=== PATIENT | male | born 1975 | race Caucasian/White ===

== ENCOUNTER 2025-06-17 13:13 | Emergency (ER) | payer OTHER, SELFPAY ==
--- OUTSIDE RECORDS SUMMARY | 2025-06-17 13:15 | XMS_ITS | Clinical Summary ---
Author Organization [facility] Address [address] [place] [address] Care Team Providers Care Rn Ed Name Role Phone Unavailable Primary Care Provider Unavailabl e Allergies Active Allergy Reactions Criticality Noted Date Comments Penicillins Anaphylaxis,Unknown High 09/23/2017 Medications promethazine-dex tromethorphan (PHENERGAN-DM) 6.25-15 mg/5 mL syrup Take 5 mL by mouth every 6 hours as needed for Cough. 120 mL 1 10/05/2022 Active Active Problems No known active problems Social History Tobacco Use Types Packs/Day Years Used Date Smoking Tobacco: Never Smokeless Tobacco: Never Tobacco Cessation:Counseling Given: Not Answered Alcohol Use Standard Drinks/Week Comments Not Currently 0 (1 standard drink = 0.6 oz pur e alcohol) Sex and Gender Information Value Date Recorded Sex Assigned at Not on file Legal Sex Male 10:20 AM DATA SERVICES DEVELOPER Gender Identity Not on file Sexual Orientation Not on file Last Filed Vital Signs Vital Sign Reading Time Taken Comments Blood Pressure 157/89 10/05/2022 10:30 AM DATA SERVICES DEVELOPER Pulse 88 10/05/2022 10:30 AM DATA SERVICES DEVELOPER Temperature 36.9 C (98.4 F) 10/05/2022 10:30 AM DATA SERVICES DEVELOPER Respiratory Rate 17 10/05/2022 10:30 AM DATA SERVICES DEVELOPER Oxygen Saturation 98% 10/05/2022 10:30 AM DATA SERVICES DEVELOPER Inhaled Oxygen Concentration - - Weight 120.2 kg (265 lb) 10/05/2022 10:30 AM DATA SERVICES DEVELOPER Height 182.9 cm (6') 10/05/2022 10:30 AM DATA SERVICES DEVELOPER Body Mass Index 35.94 10/05/2022 10:30 AM DATA SERVICES DEVELOPER Plan of Treatment Health Maintenance Due Date Last Done Comments DTAP/TDAP/TD VACCINES (1 - Tdap) 1995 HEPATITIS B VACCINES (1 of 3 - 19+ 3-dose series) 09/05 COLORECTAL SCREENING 2021 Colorectal Cancer Screening 2021 FIT-DNA Q 3 years 2021 FIT/FOBT Q 1 year 2021 Flex Sig/CT Colonography Q 5 years 2021 INFLUENZA VACCINE (#1) 2025 09/23/2017 Insurance [facility]
--- OUTSIDE RECORDS SUMMARY | 2025-06-17 13:15 | XMS_ITS | Clinical Summary ---
Author Organization [facility] Address [address] [place] [id number] Care Team Providers Care Windows Server Support Technician Name Role Phone No, Physician Primary Care Provider [phone] Allergies Active Allergy Reactions Criticality Noted Date Comments Penicillins Anaphylaxis,Unknown High 09/23/2017 Medications No known medications Active Problems Problem Noted Date Diagnosed Date Closed fracture of right tibia 12/22/2019 Immunizations Immunization Administration Dates Next Due Influenza, Quadrivalent, Spl it, Preservative Free, Intramuscular 09/23/2017 Family History Medical History Relation Name Comments No Known Problems Mother Relation Name Status Comments Mother Social History Tobacco Use Types Packs/Day Years Used Date Smoking Tobacco: Never Smokeless Tobacco: Never Alcohol Use Standard Drinks/Week Comments Yes 0 (1 standard drink = 0.6 oz pur e alcohol) social Personal Safety Answer Date Recorded Getting School Help Needed Not on file 11/11 Sex and Gender Information Value Date Recorded Sex Assigned at Not on file Legal Sex Male 10:56 AM CDT Gender Identity Male 03/14/2020 8:26 AM CDT Sexual Orientation Straight 03/14/2020 8: 26 AM CDT Obstetrics History Last Filed Vital Signs Vital Sign Reading Time Taken Comments Blood Pressure 120/88 02/27/2017 11:25 AM CDT Pulse 104 02/27/2017 11:25 AM CDT Temperature - - Respiratory Rate - - Oxygen Saturation 92% 02/27/2017 11:25 AM CDT Inhaled Oxygen Concentration - - Weight 113.4 kg (250 lb) 02/27/2017 11:25 AM CDT Height 182.9 cm (6') 02/27/2017 11:25 AM CDT Body Mass Index 33.91 02/27/2017 11:25 AM CDT Plan of Treatment Not on file Insurance [place] [id number] Care Teams Windows Server Support Technician Relationship Specialty Start Date End Date No, Physician PCP - General 12/23/19
--- OUTSIDE RECORDS SUMMARY | 2025-06-17 13:15 | XMS_ITS | Clinical Summary ---
Author Organization [facility] Address [address] [place] [address] Care Team Providers Care Planer Operator Name Role Phone None, Physician Primary Care Provider Unavailabl e Source Comments [facility],non-owned Affiliates and Associated Physician Practices is amultiple site organization consisting of ambulatory clinics and hospital sitesin [place], [place], [place] and [place]. This disclosure is being madepursuant to the Care Everywhere program and may not contain all information available regarding this patient. Last updated 18.[facility] Allergies Active Allergy Reactions Criticality Noted Date Comments Penicillins Anaphylaxis,Unknown High 09/23/2017 Medications * Be aware that medications may not be up to date on this document. Alwaysverify current medications with the patient. cefdinir (Omnicef) 300 MG capsule Take 1 (one) capsule by mouth once daily 01/24/2025 Active azelastine (Astelin) 0.1 % nasal spray [place] 1 (one) spray into each nostril 2 times daily 90 mL 4 01/27/2025 Active fluticasone propionate (Flonase) 50 MCG/ACT nasal spray [place] 2 (two) sprays into each nostril 2 times daily 16 g 4 01/27/2025 Active Immunizations Immunization Administration Dates Next Due INFLUENZA VACCINE, QUADR. (F LUZONE; FLULAVAL; FLUARIX; AFLURIA QUADRIVALENT; 6MO+), 0.5 ML (IIV4) 09/23/2017 Social History Tobacco Use Types Packs/Day Years Used Date Smoking Tobacco: Never Smokeless Tobacco: Never Tobacco Cessation:Counseling Given: Not Answered Alcohol Use Standard Drinks/Week Comments Yes 1 (1 standard drink = 0.6 oz pur e alcohol) social Sex and Gender Information Value Date Recorded Sex Assigned at Not on file Legal Sex Male 10:30 AM CDT Gender Identity Not on file Sexual Orientation Not on file Last Filed Vital Signs Vital Sign Reading Time Taken Comments Blood Pressure 124/82 01/27/2025 10:53 AM CDT Pulse 83 01/27/2025 10:53 AM CDT Temperature - - Respiratory Rate - - Oxygen Saturation - - Inhaled Oxygen Concentration - - Weight 125.2 kg (276 lb) 01/27/2025 10:53 AM CDT Height 182.9 cm (6') 01/27/2025 10:53 AM CDT Body Mass Index 37.43 01/27/2025 10:53 AM CDT Plan of Treatment Health Maintenance Due Date Last Done Comments COLOGUARD (AGES 45-75) - COL ON CA SCREENING 1976 COLON MONITORING 1976 COLONOSCOPY - COLON CA SCREENING 1976 CT COLONOGRAPHY - COLON CA SCREENING 1976 Colorectal Cancer Screening 1976 FIT - COLON CA SCREENING 1976 FLEX SIG - COLON CA SCREENING 1976 LIPID TESTING 1976 HIV SCREENING 1991 HEPATITIS C SCREENING 09/28/1994 DTAP/TDAP/TD VACCINES (1 - Tdap) 1995 HEPATITIS B VACCINE (1 of 3 - 19+ 3-dose series) 1995 COVID-19 VACCINE ( - 2023-2 5 season) 2024 DEPRESSION SCREENING 11/03/2024 SCREENING FOR DIABETES 01/27/2025 INFLUENZA VACCINE (#1) 2025 09/23/2017 ZOSTER VACCINE (1 of 2) 2026 HIB VACCINE Aged Out No longer eligi ble based on patient's age to complete this topic HPV VACCINE Aged Out No longer eligi ble based on patient's age to complete this topic MENINGOCOCCAL (Group B) VACC INE SHARED DECISION-MAKING Aged Out No longer eligibl e based on patient's age to complete this topic MENINGOCOCCAL GROUPS A/C/Y/W VACCINE Aged Out No longer eligible b ased on patient's age to complete this topic PNEUMOCOCCAL VACCINE Aged Out No long er eligible based on patient's age to complete [place] [id number] [employer] Care Teams Planer Operator Relationship Specialty Start Date End Date None, Physician PCP - General 01/27/25
--- OUTSIDE RECORDS SUMMARY | 2025-06-17 13:15 | XMS_ITS | Clinical Summary ---
Author Organization [facility] Address [address] [place] [address] Phone Care Team Providers Care Passenger Car Upholsterer Apprentice Name Role Phone Provider, None Primary Care Provider Unavailabl e Allergies Active Allergy Reactions Criticality Noted Date Comments Penicillins Anaphylaxis 09/23/2017 Medications predniSONE (DELTASONE) 10 MG TabletIndication s:Tooth abscess Take 4 tab PO daily x 2 days, 3 tab PO daily x 2 days, 2 tab PO daily x 2 day, 1 tab PO daily x 2 days. 20 Tab 11/15/2018 Active Active Problems No known active problems Immunizations Immunization Administration Dates Next Due Influenza Vaccine, Quadrivalent, PF 09/23/2017 Family History Relation Name Status Comments Father Alive Mother Alive Social History Tobacco Use Types Packs/Day Years Used Date Smoking Tobacco: Never Smokeless Tobacco: Never Tobacco Cessation:Counseling Given: No Alcohol Use Standard Drinks/Week Comments Yes 0 (1 standard drink = 0.6 oz pur e alcohol) Sexually Active Control Partners Comments Yes Female Sex and Gender Information Value Date Recorded Sex Assigned at Not on file Legal Sex Male 7:56 PM CDT Gender Identity Not on file Sexual Orientation Not on file Last Filed Vital Signs Vital Sign Reading Time Taken Comments Blood Pressure 148/88 11/15/2018 8:32 AM ADJUTANT GENERAL Pulse 102 11/15/2018 8:32 AM ADJUTANT GENERAL Temperature 36.6 C (97.9 F) 11/15/2018 8:32 AM ADJUTANT GENERAL Respiratory Rate 17 11/15/2018 8:32 AM ADJUTANT GENERAL Oxygen Saturation 95% 11/15/2018 8:32 AM ADJUTANT GENERAL Inhaled Oxygen Concentration - - Weight 117 kg (258 lb) 11/15/2018 8:32 AM ADJUTANT GENERAL Height 185.4 cm (6' 1) 09/23/2017 3:26 PM ADJUTANT GENERAL Body Mass Index 34.04 09/23/2017 3:26 PM ADJUTANT GENERAL Plan of Treatment Health Maintenance Due Date Last Done Comments Hepatitis C Virus (HCV) Screening 1976 TdaP Immunization 1976 Hepatitis B Immunization (1 of 3 - 19+ 3-dose series) 1995 Cologuard 2021 Colonoscopy 2021 Colorectal Cancer Screening 2021 Immunochemical Fecal Occult Blood 2021 SARS-COV-2 Immunization ( season) 2024 03/03/2021, 02/03/2021 Influenza Immunization (#1) 2025 09/23/2017 Respiratory Syncytial Virus (RSV) Immunization (Adult) (1 - 1-dose 75+ series) 2051 Human Papillomavirus (HPV) Immunization Aged Out No longer eligible b ased on patient's age to complete this topic Meningococcal Immunization (ACWY) Aged Out No longer eligible b ased on patient's age to complete this topic Pneumococcal Immunization Combined Aged Out No longer eligible b ased on patient's age to complete this topic Rotavirus Immunization Aged Out No lo nger eligible based on patient's age to complete this topic Care Teams Passenger Car Upholsterer Apprentice Relationship Specialty Start Date End Date Provider, None [place] PCP - General 04/19/21
--- NOTE | 2025-06-17 13:22 | ED.SKABFB ---
HPI - Skin/Abscess/Foreign Bdy General Chief complaint: Skin/Abscess/Foreign Body Stated complaint: Rash Time Seen by Provider: 06/17/25 13:22 Source: patient Mode of arrival: ambulatory Limitations: no limitations History of Present Illness HPI narrative: 49 yo M presents with poison ginette rash. C/o of rash to face, bilateral arms, legs and genials. Not using any OTC treatments. All systems reviewed and negative except as noted above. Related Data Allergies Allergy/AdvReac Type Severity Reaction Status Date / Time No Known Allergies Allergy Verified 06/17/25 13:26 PMFSH Comments At time of signature, agree with nursing past medical, surgical, social and family history. There is no relevant family history pertinent to the presenting complaint. Exam Narrative: GENERAL: This is a well-nourished, well-developed patient, in no apparent distress. HEAD: normocephalic, atraumatic. EYES: PERRL. Sclera clear/white. Vision is grossly intact. EARS: External ears normal NOSE: External nose normal NECK: Neck supple, non-tender without lymphadenopathy, masses or thyromegaly. CARDIOVASCULAR: Regular rate and rhythm without murmurs, gallops, or rubs. RESPIRATORY: Clear to auscultation. Breath sounds equal bilaterally. No wheezes, rales, or rhonchi. SKIN: warm, Dry, intact, good texture and turgor. erythematous vesicular rash to bilateral forearms, ankles, forehead noted NEURO: awake, alert, and oriented to person, place and time. There were no obvious focal neurologic abnormalities. EXTREMITIES: No joint tenderness, effusion, or edema noted. Course Course Level of Care: Express Care Visit Vital Signs Vital signs: Vital Signs Temperature 36.6 C 06/17/25 13:27 Pulse Rate 72 06/17/25 13:27 Respiratory Rate 16 06/17/25 13:27 Blood Pressure 149/79 H 06/17/25 13:27 Pulse Oximetry 99 06/17/25 13:27 Oxygen Delivery Room Air 06/17/25 13:27 Temperature 36.6 C 06/17/25 13:27 Pulse Rate 72 06/17/25 13:27 Respiratory Rate 16 06/17/25 13:27 Blood Pressure 149/79 H 06/17/25 13:27 Pulse Oximetry 99 06/17/25 13:27 Oxygen Delivery Room Air 06/17/25 13:27 reviewed MDM - Skin/Abscess/Foreign Bdy MDM Narrative Medical decision making narrative: poison ginette treated at [facility] with kenalog. prescribed steroid cream. Recommend zyrtec for itching. pt well appearing, nontoxic. Differential Diagnosis Differential diagnosis: Likely urticaria, eczema, insect bites and contact dermatitis Discharge Plan Discharge Clinical Impression: Dermatitis due to plants, including poison ginette, sumac, and oak Patient Disposition: Home Condition: Stable Instructions: Poison Ginette (ED) Additional Instructions: Apply poison ginette cream to affected area. Avoid face. Take a daily antihistamine, such as Zyrtec, while treat poison ginette rash. See your doctor if not improving. Patient Language: Czech Prescriptions: New triamcinolone acetonide 0.1 % cream 1 applic topical BID Qty: 30 0RF Follow-up/Referrals: PHYSICIAN,BIOPHYSICS PROFESSOR [Primary Care Provider] - Time of Disposition: 13:54
[2025-06-17 13:27] VITALS: BP 149/79; PULSE 72; RESP 16; TEMP 36.6; O2SAT 99
[2025-06-17] MEDS: TRIAMCINOLONE ACET INJ 40 MG/ML VIAL IM (13:45)
== END 2025-06-17 14:05 | disposition home or self-care (01) ==
PROVIDERS: Emergency Provider Nurse Practitioner Family
DX: L23.7 Allergic contact dermatitis due to plants, except food (principal)
CPT/HCPCS: 96372; 99203; G0463; J3301